=== PATIENT | female | born 2000 | race Caucasian/White ===

== ENCOUNTER 2018-09-04 20:51 | Inpatient (IN) ==
[2018-09-04] MEDS ORDERED: MoRPHine SULFATE 2 MG/ML CARP IV STA (21:28)
[2018-09-04] MEDS ORDERED: SODIUM CHLORIDE 0.9% 1000ML 1,000 ML IV ONE (21:28)
[2018-09-04] MEDS ORDERED: ACETAMINOPHEN 1,000 MG/100 ML VIAL IV STA (21:28)
[2018-09-04] MEDS ORDERED: AMPICILLIN/SULBACTAM SOD 3,000 MG in 0.9 % SODIUM CHLORIDE 100 ML IV STA (21:28)
[2018-09-04] MEDS ORDERED: DEXAMETHASONE **PF** INJ 10 MG/ML VIAL IV ONE (21:28)
[2018-09-04] MEDS ORDERED: ONDANSETRON INJ 2 MG/ML 2 ML VIAL IV STA (21:28)
[2018-09-04] MEDS ORDERED: KETOROLAC TROMETHAMINE 15 MG/ML VIAL IV STA (21:28)
[2018-09-04 21:53] LABS: Basophils # (auto) 0.04 K/uL (0-0.2); Basophils % (auto) 0.2 %; Eosinophils # (auto) 0.11 K/uL (0-0.5); Eosinophils % (auto) 0.7 %; Hematocrit (blood only) 34.9 % (37-47); Hemoglobin 11.2 g/dL (12.0-16.0); Immature Granulocytes # (auto) 0.07 K/uL (0.00-0.02); Immature Granulocytes % (auto) 0.4 %; Lymphocytes # (auto) 2.68 K/uL (1.2-3.4); Lymphocytes % (auto) 16.5 %; Mean Corpuscular Hgb Conc 32.1 g/dL (32-36); Mean Corpuscular Volume 74.3 fL (80-100); Mean Platelet Volume 10.2 fL (7.4-10.4); Monocytes # (auto) 1.62 K/uL (0.11-0.59); Neutrophils # (auto) 11.72 K/uL (1.4-6.5); Neutrophils % (auto) 72.2 %; Platelet Count 444 K/uL (130-400); RDW Standard Deviation 43.6 fL (36.4-46.3); White Blood Count 16.24 K/uL (4.8-10.8)
[2018-09-04 22:09] LABS: Albumin Level 3.9 gm/dl (3.4-5.0); BUN Creatinine Ratio 10.4 (10-20); Calcium 9.3 mg/dl (8.5-10.1); Creatinine Clr Calc Pharmacy 154.3 ml/min; Est GFR (African American) 112.7; Est GFR (Non-African American) 97.3; Potassium 3.8 mmol/L (3.5-5.1)
[2018-09-04 22:12] LABS: Albumin Globulin Ratio 0.8 (0.9-2); Bilirubin,Total 0.6 mg/dl (0.2-1); Total Protein 8.9 gm/dl (6.4-8.2)
--- NOTE | 2018-09-04 22:51 | Emergency Department Note ---
Entered by Ivette Serna acting as a scribe for History of Present Illness General Chief complaint: Sore Throat Stated complaint: SORE THROAT, HARD TO SWALLON Time Seen by Provider: 09/04/18 21:22 Source: patient History of Present Illness Provider complaint: sore throat Onset (ago): day(s) 7 Location: neck (throat ) Pain Consistency: + other (worsening) Maximum Pain Intensity: 10 Relieved By: + none Associated symptoms: + other (swelling in her throat ) The patient is a 18 year old female who presents to the ED with complaints of a worsening sore throat that began 7 days ago. The patient states that both sides of her throat have been getting more swollen each day. The patient states that she is finding it hard to breath at night. She notes that she does not sleep well at night. The patient states that she has been coughing. The patient states that she is not sure if she has a fever. The patient reports that she went to [facility] 3 days ago and tested negative for Strep. She claims she was not given any antibiotics. The patient states that she was told she had tonsillitis. She reports that she was told to wash her mouth with salt water. 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 The patient denies any allergies, diabetes, and kidney issues. The patient states that she has never had mono in the past. Home Medications Home Medications Medication Instructions Recorded Confirmed Type No Known Home Medications 09/04/18 09/04/18 History Allergies Allergy/AdvReac Type Severity Reaction Status Date / Time No Known Allergies Allergy Verified 09/04/18 21:31 Past Med/Surg History Medical History No active medical problems Family History Other No significant family history Social History current occupational status: student Feels Safe at Home: Yes Smoking Status: Never smoker Review of Systems See HPI for pertinent positives & negatives. and A total of 10 systems reviewed and were otherwise negative Physical Exam Vital Signs Vital Signs - 24 hr 09/04/18 20:57 09/04/18 22:15 09/04/18 23:38 Temperature 38.7 C H Temperature Source Oral Sepsis Recent Fever Within 48 Hours Yes Sepsis New/Unexplained Change in Mental Status No Sepsis Action Taken by Nursing No Action Required Pulse Rate 106 H 102 H Pulse Rate [Apical] 99 H Pulse Rhythm Regular Pulse Strength Normal Respiratory Rate 22 18 18 Respiratory Effort / Characteristics Non-Labored Respiratory Depth Normal Respiratory Pattern Regular Blood Pressure 159/103 H 119/84 Blood Pressure [Left Arm] 143/99 H Blood Pressure Mean 121 Blood Pressure Mean [Left Arm] 113 Blood Pressure Position Sitting Pulse Oximetry 96 95 95 Oxygen Delivery Method Room Air Room Air Room Air GENERAL: Patient is in mild distress. Muffled voice, with difficulty speaking secondary to pain. HEENT: No acute trauma, normocephalic atraumatic, mucous membranes moist, no nasal congestion, no scleral icterus. Significant throat erythema with exudate, there is fullness around the left tonsil with shift of the uvula to the right. Trismus noted. NECK: No stridor, moderate bilateral anterior cervical adenopathy, glands are quite tender to palpation, no meningismus, trachea is midline. LUNGS: Clear to auscultation bilaterally, no wheeze, no rhonchi, breath sounds equal. HEART: Tachycardic rate, no murmurs, regular rhythm. ABDOMEN: Soft, nontender, bowel sounds positive, no hernias, no peritonitis. EXTREMITIES: No cyanosis or edema, full range of motion of all the joints without pain or difficulty, no signs for acute trauma. NEUROLOGIC: Oriented x 3, no acute motor or sensory deficits, no focal weakness. SKIN: No rash, no jaundice, no diaphoresis. Course 2142: Past medical records reviewed. The patient was evaluated in room B4. A complete history and physical exam was performed. 2134: I discussed the patients case with Katerina Lu PA-C, [facility]. She states that she is going to contact her attending and call us back when she has information. 2145: I discussed the patients case with Katerina Lu PA-C. She agreed that the [facility] ENT group would drain the patients abscess tomorrow. The patient will be evaluated tonight by Dr. Guillory, [facility]. 2230: I reevaluated the patient at this time and she is breathing better. The patient was made aware that she will be evaluated further. Consultations Consultation #1: I discussed the patients case with Katerina uL PA-C, [facility] group. She states that she is going to contact her attending and call us back when she has information. Time: 21:46 Consultation #2: I discussed the patients case with Katerina Lu PA-C. She agreed that the [facility] ENT group would drain the patients abscess tomorrow. The patient will be evaluated tonight by Dr. Guillory, [facility]. Time: :31 Administered Medications Discontinued Medications Dexamethasone Sodium Phosphate (Decadron Pf) 10 mg IV NOW ONE Stop: 09/04/18 21:29 Last Admin: 09/04/18 22:06 Dose: 10 mg Documented by: [id number] Ampicillin Sodium/Sulbactam Sodium 3,000 mg/ Sodium Chloride 108 mls @ 200 mls/hr IV NOW STA; Protocol Stop: 09/04/18 22:00 Last Infusion: 09/04/18 23:06 Dose: 0 mls/hr Documented by: [id number] Admin: 09/04/18 22:07 Dose: 200 mls/hr Documented by: [id number] Acetaminophen (Ofirmev) 1,000 mg in 100 mls @ 400 mls/hr IV NOW STA Stop: 09/04/18 21:42 Last Infusion: 09/04/18 22:22 Dose: 0 mls/hr Documented by: [id number] Admin: 09/04/18 22:07 Dose: 400 mls/hr Documented by: [id number] Sodium Chloride (Nss 1000ml) 1,000 mls @ 999 mls/hr IV .Q1H1M ONE Stop: 09/04/18 22:28 Last Infusion: 09/04/18 23:07 Dose: 0 mls/hr Documented by: [id number] Admin: 09/04/18 22:07 Dose: 999 mls/hr Documented by: [id number] Ketorolac Tromethamine (Toradol) 15 mg IV NOW STA Stop: 09/04/18 21:29 Last Admin: 09/04/18 22:06 Dose: 15 mg Documented by: [id number] Morphine Sulfate (Morphine Sulfate) 2 mg IV NOW STA Stop: 09/04/18 21:29 Last Admin: 09/04/18 22:06 Dose: 2 mg Documented by: [id number] Ondansetron HCl (Zofran) 4 mg IV NOW STA Stop: 09/04/18 21:29 Last Admin: 09/04/18 22:06 Dose: 4 mg Documented by: [id number] Medical Decision Making Differential Diagnosis Differential diagnoses include dehydration, tonsillitis, mono, electrolyte imbalance, uvulitis, peritonsillar abscess, tonsillar cellulitis. Medical Records Attestation: I reviewed the patient's medical records. Home Medications Current Medication List: was personally reviewed by me Laboratory Data Attestation: I reviewed the patient's lab results. Result diagrams: 09/04/18 21:30 09/04/18 21:30 Lab Results 09/04/18 09/04/18 09/04/18 Range/Units 21:30 21:30 21:30 WBC 16.24 H (4.8-10.8) K/uL RBC 4.70 (4.2-5.4) M/uL Hgb 11.2 L (12.0-16.0) g/dL Hct 34.9 L (37-47) % MCV 74.3 L (80-100) fL MCH 23.8 L (25-34) pg MCHC 32.1 (32-36) g/dL RDW Std Deviation 43.6 (36.4-46.3) fL RDW Coeff of Kendra 16.0 H (11.5-14.5) % Plt Count 444 H (130-400) K/uL MPV 10.2 (7.4-10.4) fL Immature Gran % (Auto) 0.4 % Neut % (Auto) 72.2 % Lymph % (Auto) 16.5 % Wetzel % (Auto) 10.0 % Eos % (Auto) 0.7 % Baso % (Auto) 0.2 % Immature Gran # (Auto) 0.07 H (0.00-0.02) K/uL Neut # (Auto) 11.72 H (1.4-6.5) K/uL Lymph # (Auto) 2.68 (1.2-3.4) K/uL Wetzel # (Auto) 1.62 H (0.11-0.59) K/uL Eos # (Auto) 0.11 (0-0.5) K/uL Baso # (Auto) 0.04 (0-0.2) K/uL Sodium 139 (136-145) mmol/L Potassium 3.8 (3.5-5.1) mmol/L Chloride 105 (98-107) mmol/L Carbon Dioxide 29 (21-32) mmol/L Anion Gap 6.0 (3-11) BUN 9 (7-18) mg/dl Creatinine 0.86 (0.6-1.2) mg/dl Est Cr Clr Drug Dosing 154.3 ml/min Est GFR ( Amer) 112.7 Est GFR (Non-Af Amer) 97.3 BUN/Creatinine Ratio 10.4 (10-20) Glucose 105 H (70-99) mg/dl Calcium 9.3 (8.5-10.1) mg/dl Total Bilirubin 0.6 (0.2-1) mg/dl AST 11 L (15-37) U/L ALT 19 (12-78) U/L Alkaline Phosphatase 111 (45-117) U/L Total Protein 8.9 H (6.4-8.2) gm/dl Albumin 3.9 (3.4-5.0) gm/dl Globulin 5.0 H (2.5-4.0) gm/dl Albumin/Globulin Ratio 0.8 L (0.9-2) Monoscreen Negative (Negative) Blood Pressure Blood Pressure Findings: Elevated blood pressure Blood Pressure Disposition: further management by hospitalist ABIGAIL Narrative There is a moderate leukocytosis at 16,000, this is consistent with infection. Platelet count somewhat high at 444. No worrisome anemia. Renal panel testing did not show kidney failure or significant electrolyte abnormality. No worrisome liver enzyme elevations. Wetzel testing was negative. On exam, the patient had an impressive left-sided peritonsillar abscess. Her airway though was adequate. She was febrile and mildly tachycardic. The patient received IV saline, she was given a Decadron, IV Tylenol and IV Unasyn. She feels markedly better and is speaking better. She is able to swallow secretions since being medicated. No airway issues. 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 The patient is going to be seen by them in the morning. Patient does require hospitalization. She requires IV steroids, IV antibiotics, IV hydration and pain control. She is in no condition to be discharged as she cannot orally take in fluids or food. I did speak to the patient and case management. The on-call hospitalist was consulted. Impression & Plan Peritonsillar abscess, Fever, Tachycardia, Leukocytosis, Dehydration Discharge Plan Visit Data Chief Complaint: Sore Throat Stated Complaint: SORE THROAT, HARD TO SWALLON ED Provider: Darnell Apodaca Discharge Problem: Peritonsillar abscess, Fever, Tachycardia, Leukocytosis, Dehydration Patient Disposition: Being Evaluated by Hospitalist Discharge Instructions Interventions: ED Discharge Assessment Last Done: 09/04/18 23:38 Forms Stand Alone Forms: My [facility] [employer] Prescriptions Prescriptions: No Action No Known Home Medications RF: 0 Referrals Referrals: [place],[facility] [Primary Care Provider] - Discharge Problem: Fever Qualifiers: Fever type: unspecified Qualified Code(s): R50.9 - Fever, unspecified Leukocytosis Qualifiers: Leukocytosis type: unspecified Qualified Code(s): D72.829 - Elevated white blood cell count, unspecified The scribe's documentation has been prepared under my direction and personally reviewed by me in its entirety. I confirm that the note above accurately reflects all work, treatment, procedures, and medical decision making performed by me.
[2018-09-04] MEDS ORDERED: ACETAMINOPHEN 65 ML IV SCH (23:00)
--- NOTE | 2018-09-04 23:14 | History & Physical Report ---
Date of Service September 04, 2018 Assessment & Plan (1) Peritonsillar abscess: 18-year-old female with no significant past medical history presents with 7 days of sore throat, trismus and odynophagia. She appears to have a peritonsillar abscess on exammallampati 4, swollen left tonsil with exudates, right uvular deviation. No stridor noted. Patient is being admitted for further evaluation and possible I&D tomorrow with ENT. We will start IV antibiotics, IV fluids and pain control. Left peritonsillar abscess ENT consulted, appreciate recommendations Unasyn 3 g to 6, IV fluids normal saline 125 cc/h, keep n.p.o. Pain control: Morphine 2 mg IV every 4, Tylenol 650 mg IV every 4 Follow fever curve, repeat CBC in the morning DVT prophylaxis Encourage ambulation, chemical prophylaxis is contraindicated (2) Fever: (3) Tachycardia: (4) Leukocytosis: (5) Dehydration: History of Present Illness Primary Care Provider: [facility] 18-year-old female with no significant past medical history presents with sore throat for 7 days. History is limited secondary to patient's difficulty in opening her mouth and talking, but initial history was obtained by nursing who subsequently related to me. The patient was seen at [facility] and was found to have negative strep. She was treated portably as a viral pharyngitis. Patient is having difficulty with swallowing, although she has been able to tolerate liquids. She does relate having difficulty sleeping and feels like her breathing is affected at night. She denies any fevers, but her temperature was 38.7 in the ED today. Allergies Allergy/AdvReac Type Severity Reaction Status Date / Time No Known Allergies Allergy Verified 09/04/18 21:31 Home Medications Home Medications Medication Instructions Recorded Confirmed Type No Known Home Medications 09/04/18 09/04/18 History Past Med/Surg History Medical History No active medical problems Family History Other No significant family history Social History current occupational status: student Feels Safe at Home: Yes Smoking Status: Never smoker Review of Systems Review of Systems: All systems reviewed & are unremarkable except as noted in HPI & below Physical Exam Constitutional: WD/WN, vitals as above Eyes: PERRL, conjunctivae normal, anicteric sclerae ENMT: Ears: no hearing impairment Nose: no external nose abnormality Mouth: + oropharynx abnormality (mallampati 4, swollen left tonsil with exudates, right uvular deviation); no lip abnormality Neck: trachea midline, no thyromegaly Respiratory: normal respiratory effort, lungs clear to auscultation Cardiovascular: RRR, no murmur, no edema Gastrointestinal (Abdomen): normal bowel sounds, soft, nontender, no hepatosplenomegaly Musculoskeletal: no cyanosis or clubbing, extremities motor strength 5/5 Skin: no rashes, warm and dry Neurologic: PERRL, EOMI, accommodation nl, no face palsy, no dysarthria Results & Data Vital Signs (Past 12 Hours) Vital Signs Temp Pulse Pulse Resp BP BP Pulse Ox 09/04/18 22:15 99 H 18 143/99 H 95 09/04/18 20:57 38.7 C H 106 H 22 159/103 H 96 Supervising Physician Co-Signing Physician Notes Pt seen/examined in conjunction with resident MD Rosemary Radford. Orders and plan of admission formulated with resident. 18 y/o F - no significant Hx - throat pain x 7 days, presenting with dysarthria due to a peritonsillar abscess. OE: AAO x 3 S1,2 R CTAB NT, ND No CCE No deficits P: Placed on Unasyn IVF, NPO, ENT consult for AM PG Care Time/CCT Total # of Minutes Spent Total Time Spent with Patient: Total time spent is greater than 50% in coordination of care (as documented) at patient's floor/unit and/or counseling patient: Resident Activity Tracking Resident Involvement: Resident Care Provided Care Provided: Adult Hospital Medicine (1) Fever Fever type: unspecified Qualified Code(s): R50.9 - Fever, unspecified (2) Leukocytosis Leukocytosis type: unspecified Qualified Code(s): D72.829 - Elevated white blood cell count, unspecified
[2018-09-05] MEDS ORDERED: ACETAMINOPHEN 65 ML IV PRN (01:11)
[2018-09-05] MEDS: SODIUM CHLORIDE 0.9% 1000ML 1,000 ML IV SCH ×2 (01:11→09:52)
[2018-09-05] MEDS: MoRPHine SULFATE 2 MG/ML CARP IV PRN ×2 (01:12→16:35)
[2018-09-05] MEDS: AMPICILLIN/SULBACTAM SOD 3,000 MG in 0.9 % SODIUM CHLORIDE 100 ML IV SCH ×3 (03:42→15:57)
--- NOTE | 2018-09-05 07:18 | Family Medicine Progress Note ---
Date of Service September 05, 2018 Assessment & Plan (1) Peritonsillar abscess: 18-year-old female with no significant past medical history presents with 7 days of sore throat, trismus and odynophagia. She appears to have a peritonsillar abscess on exammallampati 4, swollen left tonsil with exudates, right uvular deviation. No stridor noted. Patient is being admitted for further evaluation and possible I&D tomorrow with ENT. We will start IV antibiotics, IV fluids and pain control. Left peritonsillar abscess ENT consulted, appreciate recommendations Unasyn 3 g to 6, IV fluids normal saline 125 cc/h, keep n.p.o. Pain control: Morphine 2 mg IV every 4, Tylenol 650 mg IV every 4 Follow fever curve, repeat CBC in the morning DVT prophylaxis Encourage ambulation, chemical prophylaxis is contraindicated (2) Fever: (3) Tachycardia: (4) Leukocytosis: (5) Dehydration: Physical Exam ENMT: Ears: no hearing impairment Nose: no external nose abnormality Mouth: + oropharynx abnormality (mallampati 4, swollen left tonsil with exudates, right uvular deviation); no lip abnormality Results & Data Vital Signs (Past 12 Hours) Vital Signs Temp Pulse Pulse Pulse Resp BP BP 09/04/18 23:50 37.7 C H 96 H 20 133/86 09/04/18 23:38 102 H 18 119/84 09/04/18 22:15 99 H 18 143/99 H 09/04/18 20:57 38.7 C H 106 H 22 159/103 H Pulse Ox Pulse Ox 09/04/18 23:50 95 95 09/04/18 23:38 95 09/04/18 22:15 95 09/04/18 20:57 96 PG Care Time/CCT Total # of Minutes Spent Total Time Spent with Patient: Total time spent is greater than 50% in coordination of care (as documented) at patient's floor/unit and/or counseling patient: (1) Fever Fever type: unspecified Qualified Code(s): R50.9 - Fever, unspecified (2) Leukocytosis Leukocytosis type: unspecified Qualified Code(s): D72.829 - Elevated white blood cell count, unspecified
[2018-09-05 08:07] LABS: Basophils # (auto) 0.01 K/uL (0-0.2); Basophils % (auto) 0.1 %; Hematocrit (blood only) 32.8 % (37-47); Hemoglobin 10.3 g/dL (12.0-16.0); Immature Granulocytes # (auto) 0.04 K/uL (0.00-0.02); Immature Granulocytes % (auto) 0.3 %; Lymphocytes # (auto) 1.55 K/uL (1.2-3.4); Lymphocytes % (auto) 10.6 %; Mean Corpuscular Hgb Conc 31.4 g/dL (32-36); Mean Corpuscular Volume 75.8 fL (80-100); Mean Platelet Volume 10.2 fL (7.4-10.4); Monocytes # (auto) 0.79 K/uL (0.11-0.59); Monocytes % (auto) 5.4 %; Neutrophils % (auto) 83.6 %; Platelet Count 433 K/uL (130-400); RDW Standard Deviation 44.3 fL (36.4-46.3); Red Blood Count 4.33 M/uL (4.2-5.4); White Blood Count 14.59 K/uL (4.8-10.8)
[2018-09-05 08:45] LABS: BUN Creatinine Ratio 15.1 (10-20); Calcium 8.9 mg/dl (8.5-10.1); Creatinine Clr Calc Pharmacy 188.9 ml/min; Est GFR (African American) 145.2; Est GFR (Non-African American) 125.3
[2018-09-05 08:55] LABS: Estimated Average Glucose 126 mg/dl
--- NOTE | 2018-09-05 15:16 | ENT Consultation ---
Date of Consultation September 05, 2018 Assessment & Plan (1) Peritonsillar abscess: incision and drainage of left peritonsillar abscess as above ok for discharge from ENT standpoint recommend discharge on augmentin and a prednisone taper starting at 40 or 50mg follow up in my office next week for recheck Present on Admission?: Yes History of Present Illness Attending Physician: Katie Encarnacion MD History of Present Illness 18 yo female with a one week history of sore throat. Was seen at [facility] last week and was told she had viral tonsillitis. Sore throat continued to worsen and she presented to the ED last night as she was having difficulty swallowing. Prior to last night she has had no treatment for her tonsillitis. She denies history of recurrent tonsillitis. Her strep and mono was negative. She has been on unasyn since admission. States she is feeling better since admission. No other symptoms. 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 Hurricane spray followed by 2% lidocaine with 1:100,000 epinephrine was used to anesthetize the left side of the pharynx. Then using an 18 gauge needle on a control syringe, 5mL of purulence was aspirated. A small incision was then made with an 11 blade and a hemostat was used to open the abscess pocket. patient tolerated procedure well. Constitutional: WD/WN, vitals as above Eyes: PERRL, conjunctivae normal, anicteric sclerae ENMT: Bilateral exudate on the tonsils. Mild uvular edema. Left tonsil 3+, right tonsil 2.5+. Left side with mild palatal edema. Neck: trachea midline, no thyromegaly Lymphatic: + cervical lymphadenopathy Results & Data Vital Signs (Past 12 Hours) Vital Signs Temp Pulse Resp BP Pulse Ox 09/05/18 07:17 36.9 C 99 H 18 115/75 92
--- NOTE | 2018-09-05 21:10 | Discharge Summary ---
Date of Service September 05, 2018 Admission HPI Per Admitting Provider 18-year-old female with no significant past medical history presents with sore throat for 7 days. History is limited secondary to patient's difficulty in opening her mouth and talking, but initial history was obtained by nursing who subsequently related to me. The patient was seen at [facility] and was found to have negative strep. She was treated portably as a viral pharyngitis. Patient is having difficulty with swallowing, although she has been able to tolerate liquids. She does relate having difficulty sleeping and feels like her breathing is affected at night. She denies any fevers, but her temperature was 38.7 in the ED today. Admission Exam Per Admitting Provider Constitutional: WD/WN, vitals as above Eyes: PERRL, conjunctivae normal, anicteric sclerae ENMT: Ears: no hearing impairment Nose: no external nose abnormality Mouth: + oropharynx abnormality (mallampati 4, swollen left tonsil with exud ates, right uvular deviation); no lip abnormality Neck: trachea midline, no thyromegaly Respiratory: normal respiratory effort, lungs clear to auscultation Cardiovascular: RRR, no murmur, no edema Gastrointestinal (Abdomen): normal bowel sounds, soft, nontender, no hepatosplenomegaly Musculoskeletal: no cyanosis or clubbing, extremities motor strength 5/5 Skin: no rashes, warm and dry Neurologic: PERRL, EOMI, accommodation nl, no face palsy, no dysarthria Principal Diagnosis Peritonsillar Abscess on Left Discharge Exam Constitutional WD/WN, vitals as above Eyes PERRL, conjunctivae normal, anicteric sclerae ENMT Mouth: + oropharynx abnormality (Slight erythema remaing on L tonsil, significantly reduced post I&D); no muffled voice, no trismus and no audible dysphonia Neck trachea midline Respiratory normal respiratory effort, lungs clear to auscultation Cardiovascular RRR, no murmur, no edema Discharge Data Allergies Allergy/AdvReac Type Severity Reaction Status Date / Time No Known Allergies Allergy Verified 09/04/18 21:31 Consultations 09/04/18 21:47 ED Decision to Admit Stat 09/05/18 00:57 Consult Otolaryngology (Head and Neck) Routine Hospital Course (1) Peritonsillar abscess: Patient presented to the ED initially with an 8 day history of sore throat, trismus and odynophagia. Upon examination it was noted she had a swollen L tonsil with exudates leading to R uvula deviation. Patient at this time also had an increased temperature, significant pain, increasing difficulty breathing. She was placed on Unasyn and given dexamethasone and morphine for pain control and symptom relief. ENT was consulted and performed an incision and drainage on the abscess. Patient noted significant improvement upon drainage of the abscess. Discharged home on augmentin and prednisone. Outpatient f/u with ENT Total Time Total Time Spent Total Time Spent (In Minutes): <60 minutes Discharge Plan Discharge Items Patient Disposition: Home - Self-Care Reason For Visit: PERITONSILLAR ABSCESS Discharge Diagnosis: L side Peritonsillar Abscess Discharge Goals: Decrease discomfort and Improve disease control Activity: Resume your previous activity Non-emergency contact: Primary Care Provider and Specialist Call non-emergency contact if: you have any medication questions and your symptoms worsen Follow-up/Referrals: [facility] [Primary Care Provider] - Diet: Regular Diet Comment: As patient can tolerate, recommend soft foods initially Addtl Provider Instructions: Ms. Upton you had presented to the ED last night with complaints of a sore throat, trouble swallowing, and trouble breathing. It was noted on exam that you had an abscess (collection of pus and bacteria) located next to the left side of your tonsils. You were admitted and given antibiotics, steroids, and pain medication to help decrease your comfort. You were seen by an ENT specialist who drained the abscess tonight. You are being discharged and are asked to continue your antibiotics and steroids as prescribed until completion. -You are prescribed Augmentin 10mL by mouth three times a day, please take as prescribed. You can pick it up at the pharmacy at [facility]. -You are prescribed Prednisone 20mg by mouth daily, please take as prescribed. You can pick it up at the pharmacy at [facility]. -You are able to advance your diet to what you feel you can tolerate. -Please follow up with your PCP in 2-3 days. -Please follow up with ENT in 1 week. If you have any questions please call your PCP. If your symptoms worsen please call or return to the ED. Prescriptions: New amoxicillin-pot clavulanate [Augmentin] 250-62.5 mg/5 mL suspension for re constitution 10 ml PO TID 10 Days Qty: 300 RF: 0 prednisone 20 mg tablet 20 mg PO DAILY Qty: 10 RF: 0 Continued No Known Home Medications RF: 0 Stand-Alone Forms: My Auto I.D. Jasmina/Other Patient Handouts: A1C, Prediabetes, Diabetes Healthy Meals, Diabe ilana Carbs, Diabetes Exercise Benefits, Diabetes Activity Tips Discharge Orders: Discharge Order (Routine); Ordered 09/05/18 Ordered By: Khoi Bowman Admission Data Admit Date/Time: 09/04/18 22:56 Attending Provider: Katie Encarnacion Admit Provider: Iban Radford Primary Care Provider: [facility] Other Providers: Luis Guillory ; Sameer Galvez Service: Medical Other Interventions: Discharge Summary Assessment (RN) Last Done: 09/05/18 16:41 DC Date/Time DO NOT enter until pt leaves facility: 09/05/18 18:10 Supervising Physician Co-Signing Physician Notes Resident Physician Supervision Note: I independently interviewed and examined the patient and verified the sykes history and physical, reviewed labs and image studies, discussed the case with the resident Dr. Bowman and agree with the findings and care plan. Resident Activity Tracking Resident Involvement: Resident Care Provided Care Provided: Adult Hospital Medicine
== END 2018-09-05 18:10 | disposition home or self-care (01) | DRG 153 ==
LOC: ED 20:51 → 3W 22:56 → SUATTDRO 22:56 → 3W 23:38

== ENCOUNTER 2020-05-03 06:23 | Observation (INO) ==
[2020-05-03] MEDS ORDERED: SODIUM CHLORIDE 0.9% 1000ML 2,000 ML IV SCH (06:30)
--- NOTE | 2020-05-03 06:34 | Emergency Department Note ---
Impression & Plan Dysfunctional uterine bleeding, Tachycardia, Vaginal bleeding, Syncope, Anemia ED Provider Note NAME: MARY PHILLIP AGE: 20 SEX: F : 2000 ARRIVES VIA: Walk-In INFORMANT: Patient ED PROVIDER(S): Rg Wilkes DO CHIEF COMPLAINT: Vaginal bleeding HPI: Patient is a 18-year-old female who presents to the ER for vaginal bleeding. This started on Sunday. She admits to passing fist size clots. She did pass out once this morning at 4 AM. She was getting up to go to the bathroom and felt a large amount of blood pass. At this point she got sweaty nauseated and passed out. She lowered herself to the ground. She did not hit her head or neck. Nothing hurts from the fall. She denies any chest pain or shortness of breath prior to or following the incident. Denies any blood thinners. She admits that she did vomit once. After vomiting she has a tickle in her throat which is causing her to intermittently cough. Denies any dysuria urgency or frequency. She has no belly pain. Last menstrual period was a month ago. Denies any headache or change in vision. Throat is a little sore following the one episode of vomiting. No chest pain or belly pain. Patient mitts to going through a pad every 1-2 hours. ROS: See above HPI for pertinent positives & negatives. A total of 10 systems reviewed and were otherwise negative. PAST MEDICAL HISTORY:See Below PAST SURGICAL HISTORY:See Below FAMILY HISTORY:See Below SOCIAL HISTORY:See Below HOME MEDICATIONS:See Below ALLERGIES:See Below VITALS:See Below PHYSICAL EXAMINATION: GENERAL: Sitting up in bed, alert, well appearing, morbidly obese, disheveled EYE EXAM: normal conjunctiva. OROPHARYNX: no exudate, no erythema, lips, buccal mucosa, and tongue normal and mucous membranes are moist NECK: supple, no nuchal rigidity, no adenopathy, non-tender LUNGS: Clear to auscultation. Normal chest wall mechanics HEART: no murmurs, S1 normal and S2 normal ABDOMEN: abdomen soft, non-tender, normo-active bowel sounds, no masses, no rebound or guarding. : Normal external genitalia, normal vaginal mucosa, blood covering the external vagina. Large clot at the 3 o'clock position removed with several Q- tips. Cervix is closed. No active bleeding. UPPER EXTREMITIES: upper extremities are grossly normal. LOWER EXTREMITIES: No pitting edema. NEURO EXAM: Normal sensorium, cranial nerves II-XII grossly intact, normal speech, no gross weakness of arms, no gross weakness of legs. MEDICAL DECISION MAKING: Patient is a 18-year-old female who presents the ER for vaginal bleeding.She passed out once this morning. Has been going on for over 24 hours. IV was established blood was obtained. Labs show no significant leukocytosis. Hemoglobin was 9 down from a baseline of 10. INR was unremarkable. BMP was unremarkable. LFTs bilirubin was unremarkable as well with a normal TSH and hCG.Covid was negative. Initial pelvic exam removed a large amount of clots. The vaginal vault was clear. There is no active bleeding from the cervix. She started having increased persistent bleeding again. This continued. hCG was repleted and trended down to age. Consulted PRESS ASSISTANT who evaluated her bedside. hCG was repeated again and it trended down to 7.5. She was typed and crossed and I ordered a unit of PRBCs while in the ER. Patient was updated bedside. She was taken upstairs. UA did resolve just prior to going upstairs and did show what appears to be UTI.She was given a total of 3 L normal saline while in the ER. Triage Nursing notes reviewed. Limited review of prior medical records performed Vital Signs: reviewed and remarkable for HTN and tachy Differential diagnosis: Etiologies such as threatened AB, miscarriage, ectopic , dysfunction uterine bleeding, bleeding dyscrasia, trauma, infection, as well as others were entertained. ER treatment provided: See below Diagnostics interpreted by me: ECG: Sinus tachycardia rate 100 Normal axis No PVCs QTC [address] wave changes lead III. Cardiac Monitoring: An order was placed for continuous cardiac monitoring. The monitor shows a rate of 101 with sinus rhythm. Laboratory studies: As stated above and show below. Imaging studies: Pelvic ultrasound shows no acute pathology. Unable to visualize both ovaries. Consultation(s): Patient was evaluated by Dr. Duran from [facility] Procedures: none Critical Care: I have personally spent 32 minutes of critical care time in the direct management of this patient. This includes bedside care, interpretation of diagnostic studies, and testing, discussion with consultants, patient, and family members, and other required patient management activities. This 32 min utes is in excess of all separately billable procedures. 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 Feels Safe at Home: Yes Assistive Devices: None Allergies Allergies Allergy/AdvReac Type Severity Reaction Status Date / Time No Known Allergies Allergy Verified 05/03/20 07:06 Home Meds Home Medications Medication Instructions Recorded Confirmed No Known Home Medications 09/04/18 05/03/20 Results & Data (ED) Vital Signs Vital Signs - 24 hr 05/03/20 06:29 05/03/20 07:49 05/03/20 09:27 Temperature 37.8 C H 36.8 C Temperature Source Oral Oral Pulse Rate 118 H 94 H Pulse Rate [Right Finger] 94 H 81 Pulse Rhythm Regular Pulse Rhythm [Right Finger] Regular Regular Pulse Strength [Right Finger] Normal Normal Respiratory Rate 24 22 20 Respiratory Effort / Characteristics Non-Labored Spontaneous Non-Labored Spontaneous Respiratory Depth Normal Normal Respiratory Pattern Regular Regular Blood Pressure 154/132 H Blood Pressure [Right Arm] 129/68 142/80 H Blood Pressure Mean 139 Blood Pressure Mean [Right Arm] 88 100 Blood Pressure Position [Right Arm] Sitting Sitting Pulse Oximetry 94 97 98 Oxygen Delivery Method Room Air Room Air Room Air Sepsis Recent Fever Within 48 Hours No Sepsis New/Unexplained Change in Mental Status No Sepsis Action Taken by Nursing No Action Required 05/03/20 10:35 05/03/20 11:02 Temperature Temperature Source Pulse Rate Pulse Rate [Right Finger] 86 85 Pulse Rhythm Pulse Rhythm [Right Finger] Regular Regular Pulse Strength [Right Finger] Normal Normal Respiratory Rate 20 20 Respiratory Effort / Characteristics Non-Labored Spontaneous Non-Labored Spontaneous Respiratory Depth Normal Normal Respiratory Pattern Regular Regular Blood Pressure Blood Pressure [Right Arm] 95/58 L 107/56 L Blood Pressure Mean Blood Pressure Mean [Right Arm] 70 73 Blood Pressure Position [Right Arm] Sitting Lying Pulse Oximetry 98 97 Oxygen Delivery Method Room Air Room Air Sepsis Recent Fever Within 48 Hours Sepsis New/Unexplained Change in Mental Status Sepsis Action Taken by Nursing Laboratory Data Result diagrams: 05/03/20 11:35 05/03/20 06:39 Lab Results 05/03/20 05/03/20 05/03/20 Range/Units 06:39 06:39 06:39 WBC 10.39 (4.8-10.8) K/uL RBC 3.99 L (4.2-5.4) M/uL Hgb 9.1 L (12.0-16.0) g/dL Hct 29.2 L (37-47) % MCV 73.2 L (80-100) fL MCH 22.8 L (25-34) pg MCHC 31.2 L (32-36) g/dL RDW Std Deviation 43.0 (36.4-46.3) fL RDW Coeff of Kendra 16.0 H (11.5-14.5) % Plt Count 397 (130-400) K/uL MPV 10.0 (7.4-10.4) fL Immature Gran % (Auto) 0.3 % Neut % (Auto) 71.1 % Lymph % (Auto) 21.6 % [place] % (Auto) 6.4 % Eos % (Auto) 0.4 % Baso % (Auto) 0.2 % Neut # (Auto) 7.39 H (1.4-6.5) K/uL Lymph # (Auto) 2.24 (1.2-3.4) K/uL [place] # (Auto) 0.67 H (0.11-0.59) K/uL Eos # (Auto) 0.04 (0-0.5) K/uL Baso # (Auto) 0.02 (0-0.2) K/uL Immature Gran # (Auto) 0.03 H (0.00-0.02) K/uL PT 10.6 (9.0-12.0) Seconds INR 1.0 (0.9-1.1) Sodium (136-145) mmol/L Potassium (3.5-5.1) mmol/L Chloride (98-107) mmol/L Carbon Dioxide (21-32) mmol/L Anion Gap (3-11) BUN (7-18) mg/dl Creatinine (0.6-1.2) mg/dl Est Cr Clr Drug Dosing ml/min Est GFR ( Amer) Est GFR (Non-Af Amer) BUN/Creatinine Ratio (10-20) Glucose (70-99) mg/dl Calcium (8.5-10.1) mg/dl Total Bilirubin (0.2-1) mg/dl AST (15-37) U/L ALT (12-78) U/L Alkaline Phosphatase (45-117) U/L Total Protein (6.4-8.2) gm/dl Albumin (3.4-5.0) gm/dl Globulin (2.5-4.0) gm/dl Albumin/Globulin Ratio (0.9-2) TSH (0.300-4.500) uIu/ml HCG, Qual Negative (Negative) Urine Color Urine Appearance (Clear) Urine pH (4.5-7.5) Ur Specific [place] (1.000-1.030) Urine Protein (Negative) Urine Glucose (UA) (Negative) Urine Ketones (Negative) Urine Blood (Negative) Urine Nitrite (Negative) Urine Bilirubin (Negative) Urine Urobilinogen (Negative) Ur Leukocyte Esterase (Negative) Urine RBC (0-4) /hpf Urine WBC (0-5) /hpf Ur Epithelial Cells (0-5) /lpf Urine Bacteria (Negative) Urine Test (Negative) Blood Type Antibody Screen Crossmatch 05/03/20 05/03/20 05/03/20 Range/Units 06:39 06:39 06:39 WBC (4.8-10.8) K/uL RBC (4.2-5.4) M/uL Hgb (12.0-16.0) g/dL Hct (37-47) % MCV (80-100) fL MCH (25-34) pg MCHC (32-36) g/dL RDW Std Deviation (36.4-46.3) fL RDW Coeff of Kendra (11.5-14.5) % Plt Count (130-400) K/uL MPV (7.4-10.4) fL Immature Gran % (Auto) % Neut % (Auto) % Lymph % (Auto) % [place] % (Auto) % Eos % (Auto) % Baso % (Auto) % Neut # (Auto) (1.4-6.5) K/uL Lymph # (Auto) (1.2-3.4) K/uL [place] # (Auto) (0.11-0.59) K/uL Eos # (Auto) (0-0.5) K/uL Baso # (Auto) (0-0.2) K/uL Immature Gran # (Auto) (0.00-0.02) K/uL PT (9.0-12.0) Seconds INR (0.9-1.1) Sodium 140 (136-145) mmol/L Potassium 3.5 (3.5-5.1) mmol/L Chloride 109 H (98-107) mmol/L Carbon Dioxide 23 (21-32) mmol/L Anion Gap 8.0 (3-11) BUN 13 (7-18) mg/dl Creatinine 0.92 (0.6-1.2) mg/dl Est Cr Clr Drug Dosing 145.3 ml/min Est GFR ( Amer) 102.4 Est GFR (Non-Af Amer) 88.4 BUN/Creatinine Ratio 14.5 (10-20) Glucose 111 H (70-99) mg/dl Calcium 9.0 (8.5-10.1) mg/dl Total Bilirubin 0.4 (0.2-1) mg/dl AST 12 L (15-37) U/L ALT 20 (12-78) U/L Alkaline Phosphatase 79 (45-117) U/L Total Protein 7.1 (6.4-8.2) gm/dl Albumin 3.5 (3.4-5.0) gm/dl Globulin 3.6 (2.5-4.0) gm/dl Albumin/Globulin Ratio 1.0 (0.9-2) TSH 3.010 (0.300-4.500) uIu/ml HCG, Qual (Negative) Urine Color Urine Appearance (Clear) Urine pH (4.5-7.5) Ur Specific [place] (1.000-1.030) Urine Protein (Negative) Urine Glucose (UA) (Negative) Urine Ketones (Negative) Urine Blood (Negative) Urine Nitrite (Negative) Urine Bilirubin (Negative) Urine Urobilinogen (Negative) Ur Leukocyte Esterase (Negative) Urine RBC (0-4) /hpf Urine WBC (0-5) /hpf Ur Epithelial Cells (0-5) /lpf Urine Bacteria (Negative) Urine Test (Negative) Blood Type O Positive Antibody Screen NEGATIVE Crossmatch See Detail 05/03/20 05/03/20 05/03/20 Range/Units 09:02 10:05 10:05 WBC (4.8-10.8) K/uL RBC (4.2-5.4) M/uL Hgb 8.2 L (12.0-16.0) g/dL Hct 26.5 L (37-47) % MCV (80-100) fL MCH (25-34) pg MCHC (32-36) g/dL RDW Std Deviation (36.4-46.3) fL RDW Coeff of Kendra (11.5-14.5) % Plt Count (130-400) K/uL MPV (7.4-10.4) fL Immature Gran % (Auto) % Neut % (Auto) % Lymph % (Auto) % [place] % (Auto) % Eos % (Auto) % Baso % (Auto) % Neut # (Auto) (1.4-6.5) K/uL Lymph # (Auto) (1.2-3.4) K/uL [place] # (Auto) (0.11-0.59) K/uL Eos # (Auto) (0-0.5) K/uL Baso # (Auto) (0-0.2) K/uL Immature Gran # (Auto) (0.00-0.02) K/uL PT (9.0-12.0) Seconds INR (0.9-1.1) Sodium (136-145) mmol/L Potassium (3.5-5.1) mmol/L Chloride (98-107) mmol/L Carbon Dioxide (21-32) mmol/L Anion Gap (3-11) BUN (7-18) mg/dl Creatinine (0.6-1.2) mg/dl Est Cr Clr Drug Dosing ml/min Est GFR ( Amer) Est GFR (Non-Af Amer) BUN/Creatinine Ratio (10-20) Glucose (70-99) mg/dl Calcium (8.5-10.1) mg/dl Total Bilirubin (0.2-1) mg/dl AST (15-37) U/L ALT (12-78) U/L Alkaline Phosphatase (45-117) U/L Total Protein (6.4-8.2) gm/dl Albumin (3.4-5.0) gm/dl Globulin (2.5-4.0) gm/dl Albumin/Globulin Ratio (0.9-2) TSH (0.300-4.500) uIu/ml HCG, Qual (Negative) Urine Color Red Urine Appearance Cloudy A (Clear) Urine pH 7.0 (4.5-7.5) Ur Specific [place] >= 1.030 (1.000-1.030) Urine Protein 3+ H (Negative) Urine Glucose (UA) Negative (Negative) Urine Ketones Negative (Negative) Urine Blood 3+ H (Negative) Urine Nitrite Negative (Negative) Urine Bilirubin Negative (Negative) Urine Urobilinogen Negative (Negative) Ur Leukocyte Esterase 1+ H (Negative) Urine RBC >30 H (0-4) /hpf Urine WBC >30 H (0-5) /hpf Ur Epithelial Cells 0-5 (0-5) /lpf Urine Bacteria 1+ H (Negative) Urine Test Negative (Negative) Blood Type Antibody Screen Crossmatch Administered Medications Lactated Ringer's (Lr) 1,000 mls @ 125 mls/hr IV .Q8H [facility] Stop: 06/02/20 11:29 Last Admin: 05/03/20 12:50 Dose: 125 mls/hr Documented by: [id number] Discontinued Medications Sodium Chloride (Nss 1000ml) 2,000 mls @ 999 mls/hr IV .Q2H1M [facility] Stop: 05/03/20 08:30 Last Infusion: 05/03/20 08:46 Dose: 0 mls/hr Documented by: [id number] Admin: 05/03/20 06:46 Dose: 999 mls/hr Documented by: [id number] Sodium Chloride (Nss 1000ml) 1,000 mls @ 999 mls/hr IV .Q1H1M ONE Stop: 05/03/20 11:58 Last Admin: 05/03/20 12:41 Dose: Not Given Documented by: [id number] Norethindrone (Norethindrone 5 Mg Tab) 5 mg PO ONE STA Stop: 05/03/20 08:27 Last Admin: 05/03/20 08:44 Dose: 5 mg Documented by: [id number] Discharge Plan Visit Data Chief Complaint: Vaginal Bleeding Stated Complaint: HEAVY VAGINAL BLEEDING,FEELING FAINT ED Provider: Rg Wilkes ED Midlevel Provider: Tommy Minaya Discharge Problem: Dysfunctional uterine bleeding, Tachycardia, Vaginal bleeding, Syncope, Anemia Patient Disposition: Home - Self-Care Discharge Instructions Interventions: ED Discharge Assessment Last Done: 05/03/20 14:16 Discharge Problem: Syncope Qualifiers: Syncope type: unspecified Qualified Code(s): R55 - Syncope and collapse Anemia Qualifiers: Anemia type: unspecified type Qualified Code(s): D64.9 - Anemia, unspecified
[2020-05-03 06:48] LABS: Basophils # (auto) 0.02 K/uL (0-0.2); Basophils % (auto) 0.2 %; Eosinophils # (auto) 0.04 K/uL (0-0.5); Eosinophils % (auto) 0.4 %; Hematocrit (blood only) 29.2 % (37-47); Hemoglobin 9.1 g/dL (12.0-16.0); Immature Granulocytes # (auto) 0.03 K/uL (0.00-0.02); Immature Granulocytes % (auto) 0.3 %; Lymphocytes # (auto) 2.24 K/uL (1.2-3.4); Lymphocytes % (auto) 21.6 %; Mean Corpuscular Hemoglobin 22.8 pg (25-34); Mean Corpuscular Hgb Conc 31.2 g/dL (32-36); Mean Corpuscular Volume 73.2 fL (80-100); Monocytes # (auto) 0.67 K/uL (0.11-0.59); Monocytes % (auto) 6.4 %; Neutrophils # (auto) 7.39 K/uL (1.4-6.5); Neutrophils % (auto) 71.1 %; Platelet Count 397 K/uL (130-400); Red Blood Count 3.99 M/uL (4.2-5.4); White Blood Count 10.39 K/uL (4.8-10.8)
[2020-05-03 07:02] LABS: Prothrombin Time 10.6 Seconds (9.0-12.0)
[2020-05-03 07:20] LABS: Albumin Level 3.5 gm/dl (3.4-5.0); BUN Creatinine Ratio 14.5 (10-20); Creatinine Clr Calc Pharmacy 145.3 ml/min; Est GFR (African American) 102.4; Est GFR (Non-African American) 88.4; Potassium 3.5 mmol/L (3.5-5.1)
[2020-05-03 07:22] LABS: Pregnancy Test, Serum Negative (Negative)
[2020-05-03 07:23] LABS: Bilirubin,Total 0.4 mg/dl (0.2-1); Globulin 3.6 gm/dl (2.5-4.0); Total Protein 7.1 gm/dl (6.4-8.2)
--- NOTE | 2020-05-03 07:41 | Emergency Department Note ---
ED Visit Note I contributed to the care of this patient under the supervision of Dr. Wilkes . Resident Activity Tracking Resident Involvement: Resident Care Provided Care Provided: Adult ED
--- NOTE | 2020-05-03 08:06 | Ultrasound Report ---
US pelvic complete HISTORY: 20 years-old Female abd vag bleeding w/ syncope, +fhx acute vaginal bleeding COMPARISON: None TECHNIQUE: Multiple real-time sonographic images of the deep pelvic structures were obtained transabd ominally and transvaginally assessing grayscale appearance, color and spectral flow FINDINGS: Limited exam secondary to patient body habitus. TRANSABDOMINAL: Anteflexed uterus measures 7.9 x 5.2 x 5.1 cm. No myometrial mass lesion identified. Ovaries are not visualized. TRANSVAGINAL: 1.0 cm thickness of the endometrium. Uterus is unremarkable. Nonvisualization of the right ovary. The left ovary measures 3.2 x 1.7 x 1.2 cm and demonstrates manda rial inflow. No adnexal mass lesions identified. No significant free pelvic fluid. IMPRESSION: 1. Limited exam as above. 2. Normal sonographic appearance of the uterus, endometrium and left ovary. 3. Nonvisualization of the right ovary. ACT 112: Negative or not required by law. The above report was generated using voice recognition software. It may contain grammatical, syntax o r spelling errors. Electronically signed by: Jesse Kimball M.D. 05/03/2020 8:04 AM
[2020-05-03] MEDS ORDERED: NORETHINDRONE 5 MG TAB PO STA (08:26)
--- NOTE | 2020-05-03 08:31 | XRay Report ---
XR chest 1V portable HISTORY: cough COMPARISON: None. FINDINGS: Mild diffuse interstitial prominence which may be technical. The cardiac silhouette is mild ly enlarged. There are low lung volumes. No pleural effusions. No pneumothorax. No focal lung consoli dations to suggest pneumonia. IMPRESSION: 1. Mild enlargement of the cardiac silhouette for age. 2. No focal lung consolidations to suggest pneumonia. ACT 112: Negative or not required by law. Electronically signed by: Frank Deal M.D. 05/03/2020 8:30 AM
[2020-05-03 09:12] LABS: Hematocrit (blood only) 26.5 % (37-47); Hemoglobin 8.2 g/dL (12.0-16.0)
[2020-05-03 10:57] LABS: Pregnancy Test, Urine Negative (Negative)
[2020-05-03] MEDS ORDERED: SODIUM CHLORIDE 0.9% 1000ML 1,000 ML IV ONE (10:58)
[2020-05-03 11:00] LABS: Appearance Urine Cloudy (Clear); Bilirubin Urine Negative (Negative); Blood Urine 3+ (Negative); Color Urine Red; Glucose Urine UA Negative (Negative); Ketones Urine Negative (Negative); Leukocyte Esterase Urine 1+ (Negative); Nitrite Urine Negative (Negative); Protein Urine 3+ (Negative); Specific Gravity Urine >= 1.030 (1.000-1.030); Urobilinogen Urine Negative (Negative)
[2020-05-03] MEDS ORDERED: ACETAMINOPHEN 325 MG TAB PO PRN (11:30)
[2020-05-03] MEDS ORDERED: ONDANSETRON INJ 2 MG/ML 2 ML VIAL IV PRN (11:30)
[2020-05-03 11:42] LABS: Epithelial Cell Urine 0-5 /lpf (0-5); RBC Urine >30 /hpf (0-4); WBC Urine >30 /hpf (0-5)
[2020-05-03 11:43] LABS: Bacteria Urine 1+ (Negative)
--- NOTE | 2020-05-03 11:43 | OB/GYN Consultation ---
Date of Consultation May 03, 2020 Assessment & Plan (1) Vaginal bleeding: Plan to admit patient for observation and acute treatment of bleeding. Has already had a dose of aygestin. Will check orthostatics. Transfuse if needed symptomatically. The patient is now in her room. She was able to easily ambulate to the bathroom. She did not feel any dizziness or lightheadedness. Her pads were saturated, but did not look new/active. Had a very small clot noted in the toilet (compared to what I have seen and she has described). Patient notes that she feels like the bleeding is slowing, is not feeling gushing or passing of clots any longer. Aware of drop of hgb from 9.1 to 8.2 to 7.5. ED T&C two units and wrote to transfuse one. I will hold on that order. She is not symptomatic and it appears that her bleeding is slowing. Will continue to monitor closely and if it appears that bleeding not slowing, or becomes symptomatic, will proceed with transfusion. Will maintain npo as if medical management does not improve situation, may need to move forward with D&C. History of Present Illness Reason for Consultation: heavy vaginal bleeding Requesting Physician: Chung History of Present Illness Patient is a 20yoaaf G0, viriginal, who presents to the Ed with heavy vaginal bleeding. Patient notes that she was in her usual state of health when she started having vaginal bleeding on Sat afternoon. Patient typically has monthly menses but this bleeding was one week late. It immediately started heavy and that is unusual for her. Usually she has at least a day of spotting. She notes it has been heavy and she has been having fist size clots. Today the bleeding got heavier, passing large clots , and tried to pass out after a shower. She presented to the ED. Was evaluated by Dr. Wilkes and cleared out several clots she has continued to pass clots while under observation. She has had some low b lood pressures and feeling some dizziness when she gets up to go to the BR. Her initial hct was 9.1 (was 10.9 in 2019) and dropped to 8.1 under observation and with hydration. Another Hgb is pending. She has received one dose of aygestin in the ED already. Given this, decision made for admission for observation and continued progestin therapy. 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 Once in the stirrups, there is a small/med clot removed from the external genitalia. Patient does not tolerate speculum exam well but able to see the cervix and no active bleeding noted. ON bme, cx palpated nulliparous and closed. did not removed clots from vagina. Results & Data ([facility]) Vital Signs (Past 12 Hours) Vital Signs Temp Pulse Pulse Resp BP BP Pulse Ox 05/03/20 10:35 86 20 95/58 L 98 05/03/20 09:27 36.8 C 81 20 142/80 H 98 05/03/20 07:49 94 H 94 H 22 129/68 97 05/03/20 06:29 37.8 C H 118 H 24 154/132 H 94 PG Care Time/CCT Total # of Minutes Spent Total Time Spent with Patient: Total time spent is greater than 50% in coordination of care (as documented) at patient's floor/unit and/or counseling patient: Coding Level of Care Code 73447 Office/OBS Consult Lvl 3 Diagnoses Vaginal bleeding N93.9
[2020-05-03 12:24] LABS: Hematocrit (blood only) 23.9 % (37-47); Hemoglobin 7.5 g/dL (12.0-16.0)
[2020-05-03] MEDS ORDERED: SODIUM CHLORIDE 0.9% 250 ML IV PRN (12:35)
--- NOTE | 2020-05-03 12:37 | Electrocardiogram Report ---
Test Reason : Blood Pressure : / mmHG Vent. Rate : 100 BPM Atrial Rate : 100 BPM P-R Int : 136 ms QRS Dur : 066 ms QT Int : 352 ms P-R-T Axes : 034 057 010 degrees QTc Int : 454 ms Poor data quality, interpretation may be adversely affected Normal sinus rhythm Normal ECG No previous ECGs available Confirmed by Cayden Garcia ([id number]) on 05/03/2020 12:37:41 PM Referred By: Confirmed By:Cayden Garcia
[2020-05-03] MEDS: LACTATED RINGER'S 1,000 ML IV SCH ×2 (12:50→20:50)
[2020-05-03 13:41] LABS: Influenza A virus by PCR Negative (Neg); Influenza B virus by PCR Negative (Neg); RSV by PCR Negative (Neg); SARS CoV2 RNA(COVID-19) InHosp NEGATIVE (Negative)
[2020-05-03] MEDS: NORETHINDRONE 5 MG TAB PO SCH ×3 (14:46→20:52)
--- NOTE | 2020-05-03 18:51 | Gynecologic Progress Note ---
Date of Service May 03, 2020 Assessment & Plan (1) Vaginal bleeding: Admission and Anticipated Discharge Date Admission Date: May 03, 2020 Bleeding seems to be slowing. Patient is asymptomatic when ambulating. Will hold on transfusion and allow the patient to eat at this point. If all goes well and continues to have slower bleeding. Plan d/c in the am. She should finish taper and then warned will have another period but should be controlled and not prolonged. She expresses understanding, will then need an appointment after that period for ultrasound and f/u with me. Will recheck a cbc in the am. As she is asymptomatic, do not see a need for transfusion at this time. Subjective Patient feels well. Has not been out of bed since first up on the floor. Denies pain to me. Notes she does not feel and gushing or passing clots. scds on. Has received third dose of aygestin. Physical Exam Constitutional: WD/WN, vitals as above Psychiatric: A+Ox3, euthymic affect Genitourinary: patient up to the bathroom. No blood on chux. Two pads sat urated with blood, but looks older (these have been on for 3.5 hours). One quarter size clot on the pad. No clot in the hat in the toilet , blood tinged urine in the hat. Results & Data ([facility]) Vital Signs (Past 12 Hours) Vital Signs Temp Pulse Pulse Pulse Resp BP BP 05/03/20 14:25 36.9 C 93 H 20 125/79 05/03/20 14:16 95 H 20 111/46 L 05/03/20 12:50 80 18 104/64 05/03/20 11:02 85 20 107/56 L 05/03/20 10:35 86 20 95/58 L 05/03/20 09:27 36.8 C 81 20 142/80 H 05/03/20 07:49 94 H 94 H 22 129/68 Pulse Ox 05/03/20 14:25 99 05/03/20 14:16 98 05/03/20 12:50 95 05/03/20 11:02 97 05/03/20 10:35 98 05/03/20 09:27 98 05/03/20 07:49 97 PG Care Time/CCT Total # of Minutes Spent Total Time Spent with Patient: Total time spent is greater than 50% in coordination of care (as documented) at patient's floor/unit and/or counseling patient: Coding Level of Care Code 30469 Subseq Hosp Care Lvl 1 Diagnoses Vaginal bleeding N93.9
[2020-05-03 22:54] LABS: Hematocrit (blood only) 22.7 % (37-47); Hemoglobin 7.1 g/dL (12.0-16.0); Mean Corpuscular Hemoglobin 23.1 pg (25-34); Mean Corpuscular Volume 73.9 fL (80-100); Mean Platelet Volume 9.9 fL (7.4-10.4); Platelet Count 354 K/uL (130-400); RDW Coefficient of Variation 16.4 % (11.5-14.5); RDW Standard Deviation 44.4 fL (36.4-46.3); Red Blood Count 3.07 M/uL (4.2-5.4); White Blood Count 11.55 K/uL (4.8-10.8)
[2020-05-03 22:59] LABS: Mean Corpuscular Hgb Conc 31.3 g/dL (32-36)
[2020-05-04] MEDS: LACTATED RINGER'S 1,000 ML IV SCH ×3 (04:57→22:31)
--- NOTE | 2020-05-04 07:53 | Gynecologic Progress Note ---
Date of Service May 04, 2020 Assessment & Plan (1) Vaginal bleeding: (2) Dysfunctional uterine bleeding: Admission and Anticipated Discharge Date Admission Date: May 03, 2020 Mush improved bleeding at this time. Hgb was stable last night after several hours. Plan d/c. Held on transfusion as she never became symptomatic. Plan to continue aygestin taper. Advised that she will have a w/d bleed at the end and prepared her for what that would be like. discussed bleeding precautions in detail. She doesn't have alot of room given her hgb. Will start iron bid. Advised will need an appt and ultrasound in the office day 7-10 after she has w/d bleed. she was able to relate to me these instructions. Call with any concerns. Subjective Patient feeling well. Slept well. Had one episode of a gush overnight that soaked her pad, but this was the first gush in over 5 hours. Patient is ambulating without difficulty. Tolerated a regular diet. Bleeding is much improved versus admission. Physical Exam Constitutional: WD/WN, vitals as above Respiratory: normal respiratory effort, lungs clear to auscultation Cardiovascular: RRR, no murmur, no edema Gastrointestinal (Abdomen): obese, soft, nt Psychiatric: A+Ox3, euthymic affect Results & Data ([facility]) Vital Signs (Past 12 Hours) Vital Signs Temp Pulse Resp BP Pulse Ox 05/04/20 03:05 36.9 C 95 H 18 104/73 96 05/03/20 23:10 36.9 C 94 H 20 122/67 98 PG Care Time/CCT Total # of Minutes Spent Total Time Spent with Patient: Total time spent is greater than 50% in coordination of care (as documented) at patient's floor/unit and/or counseling patient: Coding Level of Care Code 47694 Subseq Obs Care Lvl 1 Diagnoses Vaginal bleeding N93.9 Dysfunctional uterine bleeding N93.8
--- NOTE | 2020-05-04 08:10 | Communication Note ---
Date of Service: May 04, 2020 As I was preparing her d/c instructions, I was called to see patient for a gush of blood. She had just gotten up out of bed agfter sleeping for about 5 hours. There was a [place] of blood on the bed about the size of a grapefruit her pad was soaked and she had passed a couple of quarter sized clots. She did not feel poorly going to the BR--no dizziness, lightheadedness, etc. Plan to watch through the morning. May have been just blood collected in the vagina from being in bed sleeping. Will see if she has continued gushing. If she does, need to consider transfusion as now at 7.1 and doesn't have alot of room to move. By her own admission, her bleeding is much decreased since coming in. We discussed that nothing can turn it off like a light switch and it appears the medication is helping.
[2020-05-04] MEDS: IBUPROFEN 600 MG TAB PO SCH ×3 (08:24→19:36)
[2020-05-04] MEDS: NORETHINDRONE 5 MG TAB PO SCH ×3 (08:24→19:35)
[2020-05-04 08:36] LABS: Hematocrit (blood only) 21.1 % (37-47); Hemoglobin 6.7 g/dL (12.0-16.0); Mean Corpuscular Hemoglobin 23.3 pg (25-34); Mean Corpuscular Hgb Conc 31.8 g/dL (32-36); Mean Corpuscular Volume 73.3 fL (80-100); Mean Platelet Volume 9.6 fL (7.4-10.4); Platelet Count 332 K/uL (130-400); RDW Coefficient of Variation 16.2 % (11.5-14.5); RDW Standard Deviation 43.7 fL (36.4-46.3); Red Blood Count 2.88 M/uL (4.2-5.4); White Blood Count 10.18 K/uL (4.8-10.8)
[2020-05-04] MEDS ORDERED: SODIUM CHLORIDE 0.9% 250 ML IV PRN (08:38)
[2020-05-05] MEDS: IBUPROFEN 600 MG TAB PO SCH ×2 (01:29→08:07)
[2020-05-05] MEDS: NORETHINDRONE 5 MG TAB PO SCH ×2 (01:30→08:07)
[2020-05-05] MEDS: LACTATED RINGER'S 1,000 ML IV SCH (05:58)
[2020-05-05 06:40] LABS: Hematocrit (blood only) 23.1 % (37-47); Hemoglobin 7.6 g/dL (12.0-16.0); Mean Corpuscular Hgb Conc 32.9 g/dL (32-36); Mean Platelet Volume 10.2 fL (7.4-10.4); Platelet Count 254 K/uL (130-400); RDW Coefficient of Variation 17.5 % (11.5-14.5); Red Blood Count 3.04 M/uL (4.2-5.4); White Blood Count 8.79 K/uL (4.8-10.8)
--- NOTE | 2020-05-05 07:15 | Gynecologic Progress Note ---
Date of Service May 05, 2020 Assessment & Plan (1) Dysfunctional uterine bleeding: patient is feeling better her count is still low however we will discharge her home this morning on progesterone and iron if her bleeding worse and she will contact us back and she will follow up with Dr. Duran in one week in the office Admission and Anticipated Discharge Date Admission Date: May 04, 2020 Subjective bleeding has improved she only has scant bleeding at this time she is in aygestin still she received two units of blood lab yesterday her hemoglobin today is 7.6 when she sits up she does not feel lightheaded Results & Data ([facility]) Vital Signs (Past 12 Hours) Vital Signs Temp Pulse Resp BP Pulse Ox 05/05/20 03:35 98.2 F 76 20 134/79 98 05/04/20 23:20 98.2 F 89 20 113/72 100 05/04/20 19:30 98.4 F 100 H 18 119/84 100 PG Care Time/CCT Total # of Minutes Spent Total Time Spent with Patient: Total time spent is greater than 50% in coordination of care (as documented) at patient's floor/unit and/or counseling patient: Coding Level of Care Code 13272 Subseq Hosp Care Lvl 2 Diagnoses Dysfunctional uterine bleeding N93.8
--- NOTE | 2020-05-06 23:29 | Discharge Summary (DS) ---
ADMISSION DIAGNOSIS: Acute vaginal bleeding episode. POSTOPERATIVE DIAGNOSIS: Acute vaginal bleeding episode. PROCEDURES: 1. Observation. 2. Transfusion of 2 units of packed red cells. 3. Aygestin treatment. HISTORY OF PRESENT ILLNESS: This patient is a 20-year-old -[place] female G0 who is virginal. She is 5 feet 2 inches, and 363 pounds with a BMI of 58. She presented to the Emergency Room with heavy heavy vaginal bleeding. I was consulted to see the patient in the Emergency Room. The patient notes that she was in her usual state of health when she started having vaginal bleeding on Sunday afternoon. The patient typically has monthly menses, but this bleeding was one week late. It immediately started heavy, which is unusual for her because she usually has a couple of days of spotting prior to her heavy bleeding. She notes that the bleeding was heavy and she was having fist size clots. The day of admission, the bleeding got heavier passing much larger clots and she tried to pass out after having a shower. She presented to the Emergency Room, was evaluated by Dr. Wilkes who on pelvic exam cleared out several large clots. Under observation and hydration, she continued to pass large clots. She had some low blood pressures and was feeling a little dizzy when she got up to the bathroom. Her initial Hgb was 9.1 (it was 10.9 in 2019) and dropped to 8.1 under observation and then to 7.5. She was not orthostatic and she was ambulating without difficulty. However, she continued to bleed and because of concern of continued bleeding and possible need for transfusion, it was decided that we would admit the patient for evaluation and observation, serial hematocrits and possible consideration of transfusion. For the rest of patient's detailed history and physical, see her history and physical. ASSESSMENT: This is a 20-year-old morbidly obese -[place] female, virginal, who presents with acute vaginal bleeding. HOSPITAL COURSE: The patient was admitted for observation and acute treatment. She had been started on Aygestin and by the time she got up to the floor, she had had 2 doses. Orthostatics were checked and she did not have orthostatic hypotension or tachycardia. She was typed and crossed for 2 units in the Emergency Department, but we decided to hold on that as it seemed her bleeding was slowing initially and she was not particularly symptomatic. She was easily able to ambulate to the bathroom without dizziness or lightheadedness. Under observation, the patient's bleeding did slow down, but at approximately 11:00 she had another gush and pass of a small clot. At that time, her hemoglobin was 7.1. She was continued to be monitored overnight and had another gush in the morning on getting out of bed, saturating a pad, and passing a half-dollar size clot. Her H and H at that point was 6.7 and 21.1, so the decision was made to transfuse her because although her bleeding was slowing with the Aygestin therapy, she just did not have anywhere to go if she should have further bleeding. The patient underwent transfusion of 2 units of packed red blood cells and tolerated this very well. Unfortunately, it only bumped her hemoglobin to 7.6 and 23.1. The patient was discharged on hospital day #2. She was feeling better. Her count was still low. However, the progestin was helping with her bleeding and she was not having gushing like she was before. She was discharged home on an Aygestin taper and iron b.i.d. She was given strict bleeding precautions that if she should start to bleed like she did before, that she will need to come into the Emergency Room because she will probably need more units of blood. She was advised that at the end of the Aygestin taper, she is going to have a withdrawal bleed, but hopefully will be controlled and not as heavy as what she had had previously. The plan for followup is that she will see me in the office after her withdrawal bleed from her Aygestin taper with ultrasound to evaluate her lining. Her lining on evaluation by ultrasound in the Emergency Department was 1 cm and her ultrasound was otherwise benign. It is very likely that this patient is going to need an endometrial biopsy for evaluation for hyperplasia and then some kind of hormonal therapy for evaluation. The patient was given our number to call for any concerns. DANIEL
--- NOTE | 2020-05-11 16:07 | Coding Query ---
ANEMIA To promote full compliance with coding requirements relating to patient care, physician participation is requested in all cases of vrt mechanic uncertainty. Please assist us with the question(s) below: Coding Question(s): The record reflects the following clinical findings: Patient admitted for Dysfunctional Uterine bleeding . Began Aygestin treatment . 2 UPC transfused. Please check below the indicator for the transfusion treatment. H/H 8.2/26.5 9.1/29.2 . Thanks for your help! Kt Perez, [employer] [facility] If these findings are indicative of anemia, please specify the known or suspected type by placing an "X" within the parenthesis (x). If other, please document type. Examples are: (x ) Acute blood loss anemia from vaginal bleeding ( ) Acute Postoperative blood loss anemia ( ) Acute postoperative anemia due to dilutional fluids ( ) Chronic blood loss anemia ( ) Anemia of chronic disease ( ) Aplastic anemia ( ) Anemia due to renal disease ( ) Anemia in neoplastic disease ( ) Iron deficient anemia ( ) Anemia, unspecified or other ( ) Other: (please specify) ( ) Unable to determine MTDD
== END 2020-05-05 10:01 | disposition home or self-care (01) | DRG 760 ==
LOC: ED 06:23 → 4N 06:23